=== PATIENT | male | born 1950 | race Caucasian/White ===

== ENCOUNTER → 2016-06-07 | Outpatient (CLI) | payer OTHER ==
[~2016-06-07] MED LIST: ACET-749 PO; ASPI81TA28 PO; CIPR1TAB10 PO; CLC100 PO; DTR5 PO; ECHI80CA PO; MULT-513 PO; PRLSR20 PO; SIMV20TA2 PO; VGR50 PO
== END | disposition home or self-care (01) ==
LOC: C.LAB1850 11:56
PROVIDERS: ATTEND Internal Medicine
DX: Z00.00 Encounter for general adult medical examination without abnormal findings (principal); Z11.59 Encounter for screening for other viral diseases; C61 Malignant neoplasm of prostate

== ENCOUNTER → 2016-07-02 | Outpatient (CLI) | payer OTHER ==
[2016-07-02 10:25] LABS: BLOOD UREA NITROGEN 17 mg/dl (7-18); BUN/CREATININE RATIO 13.4 (10-20)
== END ==
LOC: C.LAB1850 08:40
PROVIDERS: ATTEND Urology
DX: R97.20 Elevated prostate specific antigen [PSA] (principal)

== ENCOUNTER → 2016-08-10 | Outpatient (CLI) | payer OTHER ==
[2016-08-10 10:11] LABS: ALT/SGPT 30 U/L (12-78); AST/SGOT 21 U/L (15-37); BLOOD UREA NITROGEN 16 mg/dl (7-18); BUN/CREATININE RATIO 12.3 (10-20); CARBON DIOXIDE 25 mmol/L (21-32); CHLORIDE 110 mmol/L (98-107); CHOLESTEROL 194 mg/dl (0-200); GLUCOSE 102 mg/dl (70-99); POTASSIUM 4.1 mmol/L (3.5-5.1); SODIUM 142 mmol/L (136-145); TRIGLYCERIDES 72 mg/dl (0-150); VERY LOW DENSITY LIPOPROT CALC 14 mg/dl
[2016-08-10 10:14] LABS: CHOLESTEROL/HDL RATIO 2.9; HDL CHOLESTEROL 67 mg/dl; LDL CHOLESTEROL CALCULATED 113 mg/dl
[2016-08-10 10:15] LABS: CALCIUM 9.2 mg/dl (8.5-10.1)
[2016-08-10 10:18] LABS: ESTIMATED AVERAGE GLUCOSE 111 mg/dl; HA1C FLAG Normal (Normal)
== END | disposition home or self-care (01) ==
LOC: C.LAB1850 08:15
PROVIDERS: ATTEND Internal Medicine
DX: E78.5 Hyperlipidemia, unspecified (principal); R73.9 Hyperglycemia, unspecified

== ENCOUNTER → 2016-11-20 | Outpatient (CLI) | payer OTHER | END | disposition home or self-care (01) | LOC: C.LAB1850 11:28 | PROVIDERS: ATTEND Urology | DX: J01.90 Acute sinusitis, unspecified (principal) ==

== ENCOUNTER → 2016-11-26 | Outpatient (CLI) | payer OTHER | END | disposition home or self-care (01) | LOC: C.PATHSPEC 13:09 | PROVIDERS: ATTEND Urology | DX: C61 Malignant neoplasm of prostate (principal) ==

== ENCOUNTER → 2017-01-01 | Outpatient (CLI) | payer OTHER ==
[~2017-01-01] MED LIST changes: -ECHI80CA PO
[2017-01-01 15:04] LABS: URINE APPEARANCE CLEAR (CLEAR); URINE BILIRUBIN NEG (NEG); URINE COLOR YELLOW; URINE NITRITE NEG (NEG); URINE PH 7.5 (4.5-7.5); URINE SPECIFIC GRAVITY 1.014 (1.000-1.030); UROBILINOGEN NEG (NEG)
[2017-01-01 15:13] LABS: MANUAL MICROSCOPIC REQUIRED? NO; REVIEW REQ? NO
== END | disposition home or self-care (01) ==
LOC: C.LAB 13:56
PROVIDERS: ATTEND Urology
DX: C61 Malignant neoplasm of prostate (principal); E78.5 Hyperlipidemia, unspecified; R73.9 Hyperglycemia, unspecified

== ENCOUNTER 2017-01-15 05:32 | Inpatient (IN) | payer OTHER ==
[2016-12-31 08:14] VITALS: BMI 26.0
--- NOTE | 2016-12-31 08:34 | PAT Medication Instructions ---
Service Date Dec 31, 2016. Current Home Medication List Aspirin (Aspirin Ec), 81 MG PO QPM Multivitamins/Minerals (Mvi With Minerals), 1 TAB PO QPM Omeprazole (Prilosec), 20 MG PO 3XWK Sildenafil Citrate (Viagra), 50 MG PO PRN Simvastatin (Zocor), 20 MG PO QPM Medication Instructions For Your Scheduled Surgery Aspirin (Aspirin Ec), 81 MG PO QPM (check with surgeon for instructions) Omeprazole (Prilosec), 20 MG PO 3XWK (continue as directed) - Hold the following medications the morning of surgery: Sildenafil Citrate (Viagra), 50 MG PO PRN - Take the following medications as scheduled the night before surgery: Sildenafil Citrate (Viagra), 50 MG PO PRN (if needed) Simvastatin (Zocor), 20 MG PO QPM Multivitamins/Minerals (Mvi With Minerals), 1 TAB PO QPM If you have any questions please call us at [phone] or [phone] or [phone]
--- NOTE | 2016-12-31 09:20 | DIAGNOSTIC IMAGING REPORT ---
CHEST PREADMISSION(PA/LAT) CLINICAL HISTORY: 66 years-old Male presenting with preadmission chest x-ray. TECHNIQUE: PA and lateral views of the chest were obtained. COMPARISON: 06/11/2014. FINDINGS: Cardiomediastinal silhouette normal. Lungs and pleural spaces clear. Osseous structures normal. Upper abdomen normal. IMPRESSION: 1. No acute cardiopulmonary disease. Electronically signed by: Hubert Nguyen M.D. 12/31/2016 9:19 AM Dictated Date/Time: 12/31/2016 9:18 AM
[2016-12-31 09:45] LABS: BASO % 0.6 %; BASO ABS # 0.04 K/uL (0-0.2); COMPLETE YES; EOS % 2.8 %; HEMATOCRIT 44.6 % (42-52); IG% 0.2 %; LYMPH % 33.9 %; LYMPH ABS # 2.19 K/uL (1.2-3.4); MEAN CELL VOLUME 98.7 fL (80-100); MEAN CORPUSCULAR HGB CONC 33.4 g/dl (32-36); MEAN PLATELET VOLUME 9.9 fL (7.4-10.4); MONO % 9.6 %; NEUT % 52.9 %; PLATELET COUNT 254 K/uL (130-400); RED BLOOD COUNT 4.52 M/uL (4.7-6.1); WHITE BLOOD COUNT 6.46 K/uL (4.8-10.8)
[2016-12-31 09:56] LABS: BUN/CREATININE RATIO 15.3 (10-20); CREATININE 1.1 mg/dl (0.60-1.40); POTASSIUM 5.1 mmol/L (3.5-5.1)
[2017-01-15] VITALS (9 sets, daily range): BP systolic 100–133; BP diastolic 64–77; PULSE 55–76; TEMP 36.1–36.9; O2SAT 94–99; Ht 165.1 cm; Wt 73.3 kg
[~2017-01-15] VITALS: Ht 165.1 cm; Wt 73.3 kg
[~2017-01-15 05:32] MED LIST changes: -ACET-749 PO; -CIPR1TAB10 PO; -CLC100 PO; -DTR5 PO
[2017-01-15] MEDS ORDERED: CEFOXITIN IV 2,000 MG in DEXTROSE 5% 50ML 50 ML IV SCH ×4 (06:00)
[2017-01-15] MEDS ORDERED: LACTATED RINGER'S 1000ML 1,000 ML IV SCH (06:00)
[2017-01-15] MEDS ORDERED: CEFAZOLIN 2000 MG/60 ML D5W IV SCH (06:00)
[2017-01-15] MEDS ORDERED: HEPARIN SOD 5000 UNIT/0.5 ML CARP SQ SCH (06:00)
[2017-01-15] MEDS: LACTATED RINGER'S 1000ML 1,000 ML IV SCH ×5 (06:09→23:59)
[2017-01-15] MEDS ORDERED: NURSING VERBAL MED ORDER ONE (06:30)
[2017-01-15] MEDS ORDERED: MIDAZOLAM HCL 1 MG/ML 2ML VIAL ONE (06:48)
[2017-01-15] MEDS ORDERED: FENTANYL CITRATE INJ 50 MCG/1 ML 2 ML VIAL ONE (06:48)
[2017-01-15] MEDS ORDERED: LIDOCAINE HCL 2% 2 ML VIAL (20MG/ML) ONE (06:49)
[2017-01-15] MEDS ORDERED: PROPOFOL IV EMULSION 10 MG/ML 20 ML VIAL IV ONE (06:49)
[2017-01-15] MEDS ORDERED: ONDANSETRON INJ 2 MG/ML 2 ML VIAL ONE (06:50)
[2017-01-15] MEDS ORDERED: GLYCOPYRROLATE INJ 0.2 MG/ML VIAL ONE (06:50)
[2017-01-15] MEDS ORDERED: NEOSTIGMINE METHYLSULFATE 5 MG/5 ML SYR ONE (06:50)
[2017-01-15] MEDS ORDERED: DEXAMETHASONE SOD INJ 4 MG/ML VIAL ONE (06:50)
[2017-01-15] MEDS ORDERED: BUPIVACAINE 0.5 % 5 MG/1 ML MPF 30ML VIAL ONE (06:57)
[2017-01-15] MEDS ORDERED: METHYLENE BLUE 0.5% 10 ML VIAL ONE (06:57)
--- NOTE | 2017-01-15 07:27 | History & Physical Bridge Note ---
H&P Re-Evaluation Bridge Note: I have examined the patient, reviewed the History & Physical and in the interval since the performance of the History & Physical I have noted the following changes of clinical significance: No changes noted
[2017-01-15] MEDS ORDERED: BELLADONNA/OPIUM SUPP 60 MG SUPP PR ONE (07:46)
[2017-01-15] MEDS ORDERED: MEPERIDINE HCL 25 MG/ML CARP IV PRN (08:00)
[2017-01-15] MEDS ORDERED: LABETALOL HCL IV 5 MG/ML 20ML IV PRN (08:00)
[2017-01-15] MEDS ORDERED: ATROPINE SULFATE 0.1 MG/ML 5ML SYR IV PRN (08:00)
[2017-01-15] MEDS ORDERED: ONDANSETRON INJ 2 MG/ML 2 ML VIAL IV PRN ×2 (08:00→10:15)
[2017-01-15] MEDS ORDERED: EpHEDrine SULFATE INJ 50 MG/ML AMP IV PRN (08:00)
[2017-01-15] MEDS ORDERED: HYDROmorphone INJ 1 MG/ML SYR IV PRN ×2 (08:00→10:15)
[2017-01-15] MEDS ORDERED: FLOSEAL HEMOSTATIC MATRIX 10ML TOP ONE (08:52)
[2017-01-15] MEDS ORDERED: SURGICEL ABSORB HEMOSTAT 2IN X 14IN TOP ONE (08:52)
[2017-01-15] MEDS ORDERED: ROCURONIUM BROMIDE 10 MG/ML 5 ML VIAL IV ONE (10:10)
[2017-01-15] MEDS ORDERED: KETOROLAC TROMETHAMINE 15 MG/ML VIAL IV PRN (10:15)
[2017-01-15] MEDS ORDERED: ACETAMINOPHEN/CODEINE 300/30MG TAB PO PRN (10:15)
[2017-01-15] MEDS ORDERED: OXYBUTYNIN CHLORIDE 5 MG TAB PO PRN (10:15)
[2017-01-15] MEDS: FENTANYL CITRATE INJ 50 MCG/1 ML 2 ML VIAL IV PRN ×2 (10:43→10:50)
--- NOTE | 2017-01-15 10:45 | [facility] Operative Report ---
Operative Report Operative Date Jan 15, 2017. Pre-Operative Diagnosis Prostate cancer Post-Operative Diagnosis Prostate Cancer Procedure(s) Performed Laparoscopic, robotic-assisted prostatectomy with bilateral pelvic lymph node dissection Surgeon Dr. 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 Complication(s) None Disposition Recovery Room / PACU (stable) Indications Prostate cancer - active surveillance for several years with progression of disease Description of Procedure Malik Luong was identified in the preoperative holding area, appropriate informed consents were reviewed and completed, and he was transported to the operating suite. Subcutaneous heparin was administered in the pre-operative holding area. Upon arrival in the operating suite, he received appropriate antibiotics and general anesthesia. He was positioned in dorsal lithotomy, a B& O suppository was inserted after digital rectal exam, and he was prepped and draped in standard fashion. A Ybarra catheter was inserted in the sterile field. A Veress needle was passed per umbilicus with uniform insuflation of the abdomen to 15mmHg. He was placed in steep Trendelenburg position. A periumbilical incision was then made to accommodate a 12mm Visiport with 10mm 0degree laparoscope. Inspection of the abdomen was carried out, and there was no evidence of traumatic entry or injury secondary to the Veress needle. The anterior abdominal wall was inspected, and of note the patient has had a prior open appendectomy. There were adhesions in the area of his prior surgery as well as other adhesions across the inferior aspect of the pelvis. I was able to sharply incise some of these adhesions and bluntly retracted others. I performed approximately 15 minutes of lysis of adhesions before adequately clearing the anterior abdominal wall for further port placement. Ports were subsequently placed in standard robotic prostatectomy fashion without incident. To begin the robotic portion of the case, the left lateral aspect of the sigmoid was mobilized off of the left pelvic side wall to allow the pouch of Maxime to be appropriately visualized. The medial umbilical ligaments were then controlled with bipolar electrocautery just inferior to the umbilicus. Following cauterization, they were divided utilizing monopolar cautery. A peritoneal incision was carried from this location to the medial aspect of the internal inguinal rings bilaterally with care to avoid opening through the ring. This incision was concluded when the vas deferens was reached. Dissection of the bladder and prostate off of the posterior aspect of the pubic arch was completed allowing full visualization of the prostate. The fat overlying the prostate was removed en bloc and passed off the table as a specimen labeled "periprostatic fat". The endopelvic fascia was cleared during this portion of the procedure, and subsequently opened - first on the right and then the left. The incision through the endopelvic fascia began near the prostate-bladder junction and was carried to the apex with extreme care to preserve all lateral levator musculature as well as the periurethral musculature and sphincter complex. The puboprostatic ligaments were thinned slightly bilaterally before placing a 0-Vicryl figure of 8 stitch around the DVC. The lymph node dissection was then conducted. External iliac vessles were identified on the pelvic side wall. The packet of fat and lymphatic tissue that resides just under the iliac vein was elevated and off of the vein with a split and roll technique. The packet was dissected laterally to the circumflex vein and distally to the obturator nerve which was preserved. The proximal aspect of the packet was carried towards the bifurcation of the iliac vessels. A combination of monopolar and bipolar cautery were used to assist with control. Clips were placed at the proximal and distal aspects of the packet prior to transection. After completing the dissection on both sides, the packets were collected and passed off of the table as specimens labeled "pelvic lymph nodes". My attention then returned to the prostate, with identification of the bladder neck aided by gentle traction on the Ybarra catheter and lateral to medial pressure at the presumed level of the bladder neck with the robotic instruments. An anterior cystotomy was made, the Ybarra balloon deflated and the catheter guided through the incision to allow anterior retraction. I attempted to preserve maximal bladder neck musculature as I circumferentially dissected around the bladder neck. After incision through the posterior aspect of the mucosa, the dissection was carried through detrusor muscle until the bilateral ampullae of the vasa were identified. After identifying the vasa, I developed a pedicle packet on each side to help flatten the dissection and placed Weck clips across the most proximal and superficial aspects of these packets adjacent to the bladder. The packets were then divided allowing easier visualization of the vasa and posterior aspect of the prostate. Vasa were each dissected before being transected. These were used to further aide in anterior retraction as the bilateral seminal vesicals were dissected with very judicious use of bipolar electrocautery. Following SV dissection, a posterior plane behind the prostate was developed - splitting Denonvilliers's fascia. This dissection was carried as far as possible towards the apex as well as far as possible laterally. An incision in the lateral prostatic fascia was then made bilaterally to facilitate control of the vascular pedicles. The pedicles were each controlled with a series of Weck clips. The neurovascular bundles were identified and a moderate nerve sparing was performed - with particular caution on the right. The apical attachments of the prostate were remaining at that stage. The DVC was divided with bipolar electrocautery. Lulú-prostatic tissue incised with sharp dissection and monopolar cautery. Maximal urethral length was preserved before dividing the urethra sharply. The prostate was entirely freed at that point, and collected in an EndoCatch bag before being moved out of the field of vision. Hemostasis was confirmed and anastomosis of the bladder and urethra was completed utilizing a double armed V- Lock stitch. A new Ybarra catheter was inserted and the anastomosis tested with irrigation. There was no evidence of leak. FloSeal coagulant was placed around the anastomosis. The robot was undocked, the specimen extracted through expansion of the lulú- umbilical camera port. The fascia was closed with a series of 0-PDS figure of 8 stitches. The right general office assistant port was closed in two layers - with a figure of 8 0-Vicryl to reapproximate the fascia followed by 4-0 Monocryl to close the skin. Monocryl was used to close all other skin incisions. All wounds were dressed with Dermabond. The case was concluded and the patient taken to the PACU in stable condition. I attest to the content of the Intraoperative Record and any orders documented therein. Any exceptions are noted below.
[2017-01-15 11:04] LABS: MEAN CELL VOLUME 97.9 fL (80-100); MEAN CORPUSCULAR HEMOGLOBIN 33.8 pg (25-34); MEAN PLATELET VOLUME 9.4 fL (7.4-10.4); PLATELET COUNT 229 K/uL (130-400); RED BLOOD COUNT 4.29 M/uL (4.7-6.1); WHITE BLOOD COUNT 12.54 K/uL (4.8-10.8)
[2017-01-15 11:16] LABS: MEAN CORPUSCULAR HGB CONC 34.5 g/dl (32-36)
--- NOTE | 2017-01-15 11:25 | Anesthesiology Progress Note ---
Anesthesia Post Op Note Date & Time Jan 15, 2017 at 11:25 Vital Signs Pain Intensity: 3 Vital Signs Past 12 Hours Date Time Temp Pulse Resp B/P (MAP) Pulse Ox O2 Delivery O2 Flow Rate FiO2 01/15/17 11:24 36.2 01/15/17 11:22 51 16 01/15/17 11:22 50 16 98 01/15/17 11:21 98/55 01/15/17 11:17 43 16 98 01/15/17 11:17 45 16 01/15/17 11:16 106/60 01/15/17 11:12 54 13 99 01/15/17 11:12 55 13 01/15/17 11:11 105/59 01/15/17 11:08 56 15 01/15/17 11:08 56 15 99 01/15/17 11:06 104/55 01/15/17 11:03 52 16 01/15/17 11:03 53 16 98 01/15/17 11:01 100/61 01/15/17 10:58 50 16 01/15/17 10:58 50 16 99 01/15/17 10:57 44 16 01/15/17 10:57 44 16 98 01/15/17 10:56 110/61 01/15/17 10:52 48 12 99 01/15/17 10:52 47 12 01/15/17 10:51 106/62 01/15/17 10:49 112/61 01/15/17 10:47 47 14 01/15/17 10:47 46 14 95 01/15/17 10:46 54 18 84 01/15/17 10:46 91 18 01/15/17 10:41 45 16 99/53 100 01/15/17 10:41 46 16 01/15/17 10:36 48 11 98/52 98 01/15/17 10:36 47 11 01/15/17 10:32 96/53 01/15/17 10:31 51 18 01/15/17 10:31 35.9 48 13 96/53 96 Nasal Cannula 4 01/15/17 10:31 51 18 96 01/15/17 05:45 36.6 76 18 133/66 (88) 97 Room Air Notes Mental Status: alert / awake / arousable, participated in evaluation Pt Amnestic to Procedure: Yes Nausea / Vomiting: adequately controlled Pain: adequately controlled Airway Patency, RR, SpO2: stable & adequate BP & HR: stable & adequate Hydration State: stable & adequate Anesthetic Complications: no major complications apparent
[2017-01-15 11:28] LABS: CALCIUM 8.8 mg/dl (8.5-10.1); CREATININE 1.5 mg/dl (0.60-1.40); POTASSIUM 4.2 mmol/L (3.5-5.1)
[2017-01-15] MEDS ORDERED: HYDROmorphone INJ 1 MG/ML SYR ONE (12:00)
[2017-01-15 13:40] LABS: PARTIAL THROMBOPLASTIN RATIO 0.9; PROTHROMBIN TIME (PATIENT) 10.5 SECONDS (9.0-12.0)
[2017-01-15] MEDS: ACETAMINOPHEN 500 MG TAB PO SCH ×2 (13:52→18:00)
[2017-01-15] MEDS: CEFAZOLIN IV 2,000 MG in DEXTROSE 5% 50ML 50 ML IV SCH ×2 (16:55→23:59)
[2017-01-15] MEDS: HEPARIN SOD 5000 UNIT/0.5 ML CARP SQ SCH (19:37)
[2017-01-15] MEDS: SIMVASTATIN 20 MG TAB PO SCH (21:28)
[2017-01-15] MEDS: DOCUSATE SODIUM 100 MG CAP PO SCH (21:28)
[2017-01-16 03:47] VITALS: BP 95/57; PULSE 61; TEMP 37.2; O2SAT 93
[2017-01-16] MEDS: ACETAMINOPHEN 500 MG TAB PO SCH ×5 (05:47→23:13)
[2017-01-16] MEDS: LACTATED RINGER'S 1000ML 1,000 ML IV SCH ×2 (05:47→12:52)
[2017-01-16 05:55] LABS: BASO % 0.1 %; BASO ABS # 0.01 K/uL (0-0.2); COMPLETE YES; EOS % 0.2 %; HEMATOCRIT 38.1 % (42-52); IG% 0.4 %; LYMPH % 16.3 %; LYMPH ABS # 1.86 K/uL (1.2-3.4); MEAN CELL VOLUME 96.5 fL (80-100); MEAN CORPUSCULAR HEMOGLOBIN 33.4 pg (25-34); MEAN CORPUSCULAR HGB CONC 34.6 g/dl (32-36); MEAN PLATELET VOLUME 9.8 fL (7.4-10.4); MONO % 9.4 %; NEUT % 73.6 %; PLATELET COUNT 212 K/uL (130-400); RED BLOOD COUNT 3.95 M/uL (4.7-6.1); WHITE BLOOD COUNT 11.41 K/uL (4.8-10.8)
[2017-01-16] MEDS: HEPARIN SOD 5000 UNIT/0.5 ML CARP SQ SCH ×2 (06:18→18:50)
[2017-01-16 06:39] LABS: BUN/CREATININE RATIO 13.8 (10-20); CALCIUM 7.9 mg/dl (8.5-10.1); CREATININE 0.95 mg/dl (0.60-1.40); POTASSIUM 4.4 mmol/L (3.5-5.1)
[2017-01-16 07:08] VITALS: BP 93/55; PULSE 61; TEMP 36.9; O2SAT 93
[2017-01-16] MEDS: CEFAZOLIN IV 2,000 MG in DEXTROSE 5% 50ML 50 ML IV SCH (07:52)
--- NOTE | 2017-01-16 08:05 | Progress Note ---
Progress Note Date of Service Jan 16, 2017. Progress Note S: Recovering well - no major issues overnight - passed some flatus - OOB in chair - pain well controlled on tylenol alone O: Vital Signs Past 12 Hours Date Time Temp Pulse Resp B/P (MAP) Pulse Ox O2 Delivery O2 Flow Rate FiO2 01/16/17 07:08 36.9 61 17 93/55 (68) 93 Room Air 01/16/17 03:47 37.2 61 16 95/57 (70) 93 Room Air 01/15/17 23:30 Room Air 01/15/17 23:19 36.9 73 16 100/64 (76) 95 Room Air NAD AAOx3 no resp distress abd soft urine clear A/P: POD #1 s/p RALP - doing well - ambulate -slow diet advance
--- NOTE | 2017-01-16 08:13 | Discharge Instructions ---
Discharge Instructions Date of Service Jan 15, 2017. Admission Reason for Admission: Prostate Cancer Discharge Discharge Diagnosis / Problem: Prostate Cancer Discharge Goals Goal(s): Decrease discomfort, Increase independence, Improve disease control, Improve nutritional status, Therapeutic intervention Activity Recommendations Activity Limitations: per Instructions/Follow-up section Shower/Bathe: tomorrow 1. Do not lift >15lbs x 6 weeks. 2. No heavy exercise x 6 weeks. You may engage in light activity such as walking and stairs as tolerated. 3. No sexual intercourse until cleared by Dr. Tran or Dr. Gomez. 4. Do not drive x [address] while taking narcotics. 5. You have been prescribed the antibiotic Ciprofloxacin. Start this 2 days prior to butts catheter removal. Finish all of the antibiotic you have been prescribed. 6. Immediately call our office at [phone] if your catheter is removed for any reason. 7. Follow-up as scheduled. Please call our office at [phone] if you need to reschedule for any reason. . . Current Hospital Diet Hospital Diet(s): Clear Liquid Diet Discharge Diet Recommended Diet: Regular Diet Procedures Procedures Performed: Laparoscopic, robotic-assisted prostatectomy with bilateral pelvic lymph node dissection Pending Studies Studies pending at discharge: yes (prostate and lymph node pathology) List of pending studies: prostate and lymph node pathology Medical Emergencies . Who to Call and When: Medical Emergencies: If at any time you feel your situation is an emergency, please call 911 immediately. . Non-Emergent Contact Non-Emergency issues call your: Urologist Call Non-Emergent contact if: temperature is above 101.5, your pain is not controlled, your pain is worsening, your pain is unusual for you, your pain is concerning you, you have any medication questions . . "Provider Documentation" section prepared by Lillian Mccracken. . VTE Core Measure Inpt VTE Proph given/why not?: Unfractionated heparin SQ, SCD's [place] Drug Monitoring Program Search Results: patient reviewed within database, no issues identified
[2017-01-16] MEDS ORDERED: ACET-749 PO (08:16)
[2017-01-16] MEDS ORDERED: DTR5 PO (08:16)
[2017-01-16] MEDS ORDERED: CLC100 PO (08:16)
[2017-01-16] MEDS ORDERED: CIPR1TAB10 PO (08:16)
[2017-01-16] MEDS ORDERED: PANTOprazole SOD 40 MG TAB PO SCH (09:00)
[2017-01-16] MEDS: DOCUSATE SODIUM 100 MG CAP PO SCH ×2 (09:50→20:34)
[2017-01-16] MEDS: ASPIRIN 81 MG ECTAB PO SCH (09:51)
--- NOTE | 2017-01-16 11:01 | Anesthesiology Progress Note ---
Anesthesia Post Op Note Date & Time Jan 16, 2017 at 11:00 Vital Signs Pain Intensity: 4.0 Vital Signs Past 12 Hours Date Time Temp Pulse Resp B/P (MAP) Pulse Ox O2 Delivery O2 Flow Rate FiO2 01/16/17 07:49 Room Air 01/16/17 07:08 36.9 61 17 93/55 (68) 93 Room Air 01/16/17 03:47 37.2 61 16 95/57 (70) 93 Room Air 01/15/17 23:30 Room Air 01/15/17 23:19 36.9 73 16 100/64 (76) 95 Room Air Notes Mental Status: alert / awake / arousable Nausea / Vomiting: adequately controlled Pain: adequately controlled Airway Patency, RR, SpO2: stable & adequate BP & HR: stable & adequate Hydration State: stable & adequate General Anesthesia stable happy with care.
[2017-01-16 15:44] VITALS: BP 110/69; PULSE 65; TEMP 37.4; O2SAT 97
[2017-01-16] MEDS ORDERED: NURSING VERBAL MED ORDER ONE (19:00)
[2017-01-16] MEDS: SIMVASTATIN 20 MG TAB PO SCH (20:34)
[2017-01-16 23:08] VITALS: BP 108/68; PULSE 74; TEMP 37.1; O2SAT 94
[2017-01-17] MEDS: HEPARIN SOD 5000 UNIT/0.5 ML CARP SQ SCH (06:09)
[2017-01-17] MEDS: ACETAMINOPHEN 500 MG TAB PO SCH ×2 (06:09→12:32)
[2017-01-17 07:05] VITALS: BP 120/73; PULSE 67; TEMP 36.6; O2SAT 93
[2017-01-17 07:13] LABS: BASO % 0.3 %; BASO ABS # 0.02 K/uL (0-0.2); COMPLETE YES; EOS % 1.3 %; IG% 0.1 %; LYMPH % 22.8 %; MEAN CELL VOLUME 96.1 fL (80-100); MEAN CORPUSCULAR HEMOGLOBIN 33.5 pg (25-34); MEAN CORPUSCULAR HGB CONC 34.9 g/dl (32-36); MEAN PLATELET VOLUME 9.5 fL (7.4-10.4); MONO % 7.6 %; NEUT % 67.9 %; PLATELET COUNT 209 K/uL (130-400); RED BLOOD COUNT 3.85 M/uL (4.7-6.1); WHITE BLOOD COUNT 7.46 K/uL (4.8-10.8)
[2017-01-17 07:51] LABS: BUN/CREATININE RATIO 12.8 (10-20); CALCIUM 8.2 mg/dl (8.5-10.1); POTASSIUM 3.9 mmol/L (3.5-5.1)
--- NOTE | 2017-01-17 08:17 | Progress Note ---
Subjective Date of Service: Jan 17, 2017. Subjective Pt evaluation today including: conversation w/ patient, chart review, lab review Voiding: butts catheter in place (patent, draining clear, yellow urine ) 66 yo male s/p RALRP. Pt reports some abdominal soreness this morning, but otherwise feels well. Denies n/v. Tolerating mechanical soft diet. + flatus. Denies BM. He has been ambulating to the hallway without difficulty. Labs stable. Cr has normalized. Review of Systems Constitutional: No fever, No chills Respiratory: No shortness of breath Cardiac: No chest pain Abdomen: + pain (incisional soreness), No nausea, No vomiting Male : No hematuria Heme: No abnormal bleeding/bruising Objective Vital Signs Date Time Temp Pulse Resp B/P (MAP) Pulse Ox O2 Delivery O2 Flow Rate FiO2 01/17/17 07:05 36.6 67 17 120/73 (89) 93 Room Air 01/17/17 00:14 Room Air 01/16/17 23:08 37.1 74 16 108/68 (81) 94 Room Air 01/16/17 20:00 Room Air 01/16/17 15:44 37.4 65 16 110/69 (83) 97 Room Air Physical Exam General Appearance: no apparent distress Eyes: normal inspection ENT: hearing grossly normal Neck: no JVD Respiratory/Chest: no respiratory distress, no accessory muscle use Cardiovascular: no JVD Abdomen: + pertinent finding (abdominal incisions c/d/i) Extremities: normal inspection Neurologic/Psychiatric: alert, normal mood/affect, oriented x 3 Skin: normal color Laboratory Results Last 24 Hours Test 01/17/17 06:47 White Blood Count 7.46 K/uL Red Blood Count 3.85 M/uL Hemoglobin 12.9 g/dL Hematocrit 37.0 % Mean Corpuscular Volume 96.1 fL Mean Corpuscular Hemoglobin 33.5 pg Mean Corpuscular Hemoglobin Concent 34.9 g/dl Platelet Count 209 K/uL Mean Platelet Volume 9.5 fL Neutrophils (%) (Auto) 67.9 % Lymphocytes (%) (Auto) 22.8 % Monocytes (%) (Auto) 7.6 % Eosinophils (%) (Auto) 1.3 % Basophils (%) (Auto) 0.3 % Neutrophils # (Auto) 5.06 K/uL Lymphocytes # (Auto) 1.70 K/uL Monocytes # (Auto) 0.57 K/uL Eosinophils # (Auto) 0.10 K/uL Basophils # (Auto) 0.02 K/uL RDW Standard Deviation 44.6 fL RDW Coefficient of Variation 12.8 % Immature Granulocyte % (Auto) 0.1 % Immature Granulocyte # (Auto) 0.01 K/uL Sodium Level 144 mmol/L Potassium Level 3.9 mmol/L Chloride Level 111 mmol/L Carbon Dioxide Level 28 mmol/L Anion Gap 5.0 mmol/L Blood Urea Nitrogen 13 mg/dl Creatinine 1.00 mg/dl Est Creatinine Clear Calc Drug Dose 62.4 ml/min Estimated GFR () 89.9 Estimated GFR (Non- 77.5 BUN/Creatinine Ratio 12.8 Random Glucose 101 mg/dl Calcium Level 8.2 mg/dl Assessment and Plan POD #2 s/p RALRP. AFVSS. Pt doing well post-op. Clinically stable. Will d/c home this morning with butts catheter in place. D/c home on oxybutynin , Colace, Tylenol #3, and Cipro. F/u next week for TOV as scheduled. Discharge planning: home
[2017-01-17] MEDS: DOCUSATE SODIUM 100 MG CAP PO SCH (08:56)
[2017-01-17] MEDS: ASPIRIN 81 MG ECTAB PO SCH (08:56)
[2017-01-17 10:51] VITALS: BP 120/73; PULSE 67; TEMP 36.6; O2SAT 93
--- NOTE | 2017-01-22 09:03 | Discharge Summary ---
Discharge Summary Date of Service Jan 22, 2017. Discharge Summary Admission Date: Jan 15, 2017 at 10:20 Discharge Date: Jan 16, 2017 Discharge Disposition: Home Principal Diagnosis: Prostate cancer Procedures: Robotic prostatectomy Medication Reconciliation New Medications: Ciprofloxacin Hcl (Cipro) 500 Mg Tab 500 MG PO BID, #10 TAB Start 2 days prior to butts catheter removal. Acetaminophen/Codeine (Tylenol W/Codeine #3) 300 Mg/30 Mg Tab 1-2 TAB PO Q4H PRN for Pain, #30 TAB 0 Refills Docusate Sodium (Docusate Sodium) 100 Mg Cap 100 MG PO BID PRN for Constipation, #60 CAP 0 Refills Oxybutynin Chloride (Oxybutynin Chloride) 5 Mg Tab 5 MG PO Q8 PRN for BLADDER SPASMS, #30 TAB 0 Refills Continued Medications: Aspirin (Aspirin Ec) 81 Mg Tab 81 MG PO QPM Multivitamins/Minerals (Mvi With Minerals) Tab 1 TAB PO QPM, TAB Omeprazole (Prilosec) 20 Mg Capcr 20 MG PO 3XWK, CAP TAKES IN AM MON, WED, FRI Simvastatin (Zocor) 20 Mg Tab 20 MG PO QPM, TAB Discontinued Medications: Sildenafil Citrate (Viagra) 50 Mg Tab 50 MG PO PRN, TAB Hospital Course Patient was admitted on 01/16/2017 and underwent a robotic prostatectomy. The procedure are as previously dictated in the operative report. In summary, he tolerated the procedure very well. He was in stable condition on the floor through postoperative day 1. He felt it was not quite ready for discharge home and was was kept overnight on postoperative day one and into day 2. Laboratory examinations were in stable, he was ambulatory, and was tolerating a diet. He was subsequently discharged on postoperative day 2 in stable condition. Total time spent on discharge = This includes examination of the patient, discharge planning, medication reconciliation, and communication with other providers. Discharge Instructions Please see previously written discharge instructions
== END 2017-01-17 13:00 | disposition home or self-care (01) | DRG 708 ==
LOC: C.ACU 05:32 → C.MSW 10:20 → ENRESERV 10:59
PROVIDERS: ADMIT Urology; ATTEND Urology
PROC: 0VT04ZZ Resection of Prostate, Percutaneous Endoscopic Approach (ICD-10-PCS; principal; 2017-01-15 07:30)
PROC: 07BC4ZX Excision of Pelvis Lymphatic, Percutaneous Endoscopic Approach, Diagnostic (ICD-10-PCS; principal; 2017-01-15 07:30)
DX: C61 Malignant neoplasm of prostate (principal); E78.5 Hyperlipidemia, unspecified; M19.90 Unspecified osteoarthritis, unspecified site

== ENCOUNTER 2017-01-17 23:14 | Emergency (ER) | payer OTHER ==
[~2017-01-17] VITALS: Ht 165.1 cm; Wt 72.4 kg
[~2017-01-17 23:14] MED LIST changes: +ACET-749 PO; +CIPR1TAB10 PO; +CLC100 PO; +DTR5 PO; -VGR50 PO
[2017-01-17 23:16] VITALS: TEMP 36.6; Ht 165.1 cm; Wt 72.4 kg
[2017-01-17] MEDS ORDERED: POLYETHYLENE (MIRALAX) 17 GM PACK PO STA (23:58)
[2017-01-18 00:20] VITALS: BP 123/76; PULSE 67; O2SAT 98
--- NOTE | 2017-01-18 07:15 | EMERGENCY ROOM VISIT NOTE ---
History Report prepared by Samreen: Beatrice Esposito Under the Supervision of: Dr. Jo Ann Salinas M.D. First contact with patient: 23:26 Chief Complaint: OTHER COMPLAINT Stated Complaint: COMPLICATIONS FROM PROSTATE SURGERY History of Present Illness The patient is a 66 year old male who presents to the Emergency Room with complaints of an episode of movement of his catheter occurring tonight. The patient states that he had surgery on his prostate two days ago. He reports he thought his catheter moved and was worried it had come out. The patient states that the catheter is still draining and he goes to get it out in five days. The patient complains of constipation, no BM in 5 days. He notes he has not been taking narcotic pain medication, only Tylenol. He states that he takes stool softeners with no relief. He denies fevers, vomiting, and diarrhea. Source of History: patient Onset: tonight Position: other (global) Quality: other (global) Timing: other (episode) Associated Symptoms: No fevers, No vomiting, No diarrhea Note: The patient complains of constipation. Review of Systems See HPI for pertinent positives & negatives. A total of 10 systems reviewed and were otherwise negative. Past Medical & Surgical Medical Problems: (1) Erectile dysfunction (2) Hypercholesterolemia Surgical Problems: (1) Status post appendectomy (2) Status post vasectomy Family History Cancer Diabetes mellitus Heart disease Hypertension Social History Smoking Status: Never Smoker Alcohol Use: occasionally Drug Use: none Marital Status: Housing Status: lives with family Occupation Status: retired Current/Historical Medications Scheduled Aspirin (Aspirin Ec), 81 MG PO QPM Ciprofloxacin Hcl (Cipro), 500 MG PO BID Multivitamins/Minerals (Mvi With Minerals), 1 TAB PO QPM Omeprazole (Prilosec), 20 MG PO 3XWK Simvastatin (Zocor), 20 MG PO QPM Scheduled PRN Acetaminophen/Codeine (Tylenol W/Codeine #3), 1-2 TAB PO Q4H PRN for Pain Docusate Sodium (Docusate Sodium), 100 MG PO BID PRN for Constipation Oxybutynin Chloride (Oxybutynin Chloride), 5 MG PO Q8 PRN for BLADDER SPASMS Allergies Coded Allergies: Sulfa Antibiotics (Verified Allergy, Unknown, RASH/ITCHY, 01/15/17) Physical Exam Vital Signs Date Time Temp Pulse Resp B/P (MAP) Pulse Ox O2 Delivery O2 Flow Rate FiO2 01/18/17 00:20 67 18 123/76 98 01/17/17 23:16 36.6 96 16 128/80 94 Room Air Physical Exam Vital signs reviewed. General: Well-appearing, in no significant distress. HEENT: No scleral icterus, PERRLA, neck supple. Atraumatic. Cardiovascular: Regular rate and rhythm, no extra sounds. Pulmonary: Clear to auscultation bilaterally, normal work of breathing. Abdomen: Soft, nontender, nondistended, positive bowel sounds. : Normal male genitalia with a Ybarra catheter in place. Some ecchymosis to the scrotum. Clear, yellow urine draining from catheter. Musculoskeletal: Atraumatic, no peripheral edema. Neurologic: Patient awake alert and oriented x 3. Skin: Warm, dry, no rash Medical Decision & Procedures ED Course 2343: Past medical records reviewed. The patient was evaluated in room A10. A complete history and physical examination was performed. 2358: Ordered Miralax 17 gm PO. 0019: Upon reevaluation, the patient appeared to have improvement of his symptoms. I discussed findings with the patient. He verbalized agreement of the treatment plan. The patient was discharged home. Medical Decision This pt was evaluated and appeared to be in no distress. Nursing staff adjusted the leg strap and clamp, clear urine began to flow well. Catheter was irrigated without difficulty. Pt was given miralax 17 gm po. He was advised to continue miralax q 8 hours until he has a BM. Pt will continue catheter care and f/u with Dr Gomez as scheduled. He will return to the ED for worsening of symptoms or any medical concerns. Medication Reconcilliation Current Medication List: was personally reviewed by me Blood Pressure Screening Patient's blood pressure: Normal blood pressure Blood pressure disposition: Did not require urgent referral Impression Primary Impression: Complication of Ybarra catheter Additional Impression: Constipation Scribe Attestation The scribe's documentation has been prepared under my direction and personally reviewed by me in its entirety. I confirm that the note above accurately reflects all work, treatment, procedures, and medical decision making performed by me. Departure Information Dispostion Home / Self-Care Referrals Gonzales Cox M.D. (PCP) Forms HOME CARE DOCUMENTATION FORM, IMPORTANT VISIT INFORMATION, WORK / SCHOOL INSTRUCTIONS Patient Instructions My [facility] Additional Instructions Diagnosis: Ybarra catheter issue Please continue catheter care as instructed. Follow up with Dr Gomez as scheduled. Miralax 1 capful every 8 hours until you have a BM. Return to the ED for worsening of symptoms or any medical concerns. Problem Qualifiers
== END 2017-01-18 00:19 | disposition home or self-care (01) ==
LOC: C.EDB 23:15 → C.EDA 01-18 00:19
DX: T83.028A Displacement of other urinary catheter, initial encounter (principal); Y84.6 Urinary catheterization as the cause of abnormal reaction of the patient, or of later complication, without mention of misadventure at the time of the procedure; K59.00 Constipation, unspecified; Z98.890 Other specified postprocedural states; N52.9 Male erectile dysfunction, unspecified; E78.00 Pure hypercholesterolemia, unspecified; Z80.9 Family history of malignant neoplasm, unspecified; Z83.3 Family history of diabetes mellitus; Z82.49 Family history of ischemic heart disease and other diseases of the circulatory system; Z79.82 Long term (current) use of aspirin; Z79.899 Other long term (current) drug therapy

== ENCOUNTER → 2017-02-11 | Outpatient (CLI) | payer OTHER ==
[2017-02-11 09:55] LABS: AST/SGOT 20 U/L (15-37); BLOOD UREA NITROGEN 19 mg/dl (7-18); BUN/CREATININE RATIO 17.1 (10-20); CALCIUM 8.9 mg/dl (8.5-10.1); CARBON DIOXIDE 30 mmol/L (21-32); CHLORIDE 106 mmol/L (98-107); CHOLESTEROL 200 mg/dl (0-200); CREATININE 1.12 mg/dl (0.60-1.40); GLUCOSE 99 mg/dl (70-99); POTASSIUM 4.2 mmol/L (3.5-5.1); SODIUM 141 mmol/L (136-145)
[2017-02-11 09:59] LABS: ALT/SGPT 27 U/L (12-78); CHOLESTEROL/HDL RATIO 3.2; HDL CHOLESTEROL 62 mg/dl; LDL CHOLESTEROL CALCULATED 128 mg/dl; TRIGLYCERIDES 52 mg/dl (0-150); VERY LOW DENSITY LIPOPROT CALC 10 mg/dl
[2017-02-11 10:17] LABS: ESTIMATED AVERAGE GLUCOSE 111 mg/dl; HA1C FLAG Normal (Normal)
== END | disposition home or self-care (01) ==
LOC: C.LAB1850 07:27
PROVIDERS: ATTEND Internal Medicine
DX: E78.5 Hyperlipidemia, unspecified (principal); R73.9 Hyperglycemia, unspecified

== ENCOUNTER → 2017-02-28 | Outpatient (CLI) | payer OTHER | END | disposition home or self-care (01) | LOC: C.LAB1850 07:11 | PROVIDERS: ATTEND Urology | DX: C61 Malignant neoplasm of prostate (principal) ==

== ENCOUNTER → 2017-04-11 | Outpatient (CLI) | payer OTHER | END | disposition home or self-care (01) | LOC: C.LAB1850 09:06 | PROVIDERS: ATTEND Urology | DX: C61 Malignant neoplasm of prostate (principal) ==

== ENCOUNTER 2017-05-31 15:53 | Emergency (ER) | payer OTHER ==
[~2017-05-31] VITALS: Ht 165.1 cm; Wt 72.0 kg
[2017-05-31 16:08] VITALS: TEMP 36.7; Ht 165.1 cm; Wt 72.0 kg
[2017-05-31] MEDS ORDERED: CEFTRIAXONE SOD INJ 1 GM ADDVIAL IV STA (18:28)
--- NOTE | 2017-05-31 18:31 | EMERGENCY ROOM VISIT NOTE ---
History Report prepared by Samreen: Shahbaz Whitmore Under the Supervision of: Dr. Dread France M.D. First contact with patient: 18:17 Chief Complaint: LEG PAIN,LEG INJURY Stated Complaint: BUMP ON LEG,PAINFUL,RED AND SWOLLEN History of Present Illness The patient is a 66 year old male who presents to the Emergency Room with complaints of constant left leg pain starting last night around his knee. He currently rates his discomfort as a 5/10 in severity. The patient states that he did not hit his leg on anything, and he does not have any known tick bites. He has a dog, though it is not an outdoor dog. He states that it is not itchy, and he denies any chest pain or shortness of breath. The patient states that he called his PCP, and they told him to come to the ED for evaluation. Source of History: patient Onset: last night Position: leg (left) Symptom Intensity: 5/10 Timing: constant Associated Symptoms: No chest pain, No SOB Review of Systems See HPI for pertinent positives & negatives. A total of 10 systems reviewed and were otherwise negative. Past Medical & Surgical Medical Problems: (1) Erectile dysfunction (2) Hypercholesterolemia Surgical Problems: (1) Status post appendectomy (2) Status post vasectomy Family History Cancer Diabetes mellitus Heart disease Hypertension Social History Smoking Status: Never Smoker Alcohol Use: occasionally Drug Use: none Marital Status: Housing Status: lives with family Occupation Status: retired Current/Historical Medications Scheduled Aspirin (Aspirin Ec), 81 MG PO QPM Enoxaparin Sodium (Lovenox), 70 MG SQ Q12 Multivitamins/Minerals (Mvi With Minerals), 1 TAB PO QPM Omeprazole (Prilosec), 20 MG PO Q2D Ranitidine (Zantac), 150 MG PO Q2D Sildenafil Citrate (Pulmonary (Sildenafil), 20 MG PO DAILY Simvastatin (Zocor), 20 MG PO QPM Warfarin Sodium (Coumadin), 5 MG PO DAILY Allergies Coded Allergies: Sulfa Antibiotics (Verified Allergy, Unknown, RASH/ITCHY, 01/15/17) Physical Exam Vital Signs Date Time Temp Pulse Resp B/P (MAP) Pulse Ox O2 Delivery O2 Flow Rate FiO2 05/31/17 20:51 69 16 127/80 99 05/31/17 18:44 70 16 135/85 97 Room Air 05/31/17 16:08 36.7 81 16 130/66 100 Physical Exam GENERAL: Patient is a healthy-appearing well-nourished male HEAD: Normocephalic atraumatic EYES: Ocular movements intact pupils equal and react to light OROPHARYNX mucous membranes are moist no exudates present no erythema or edema present NECK: Supple no nuchal rigidity CHEST: Good equal expansion LUNGS: Clear and equal to auscultation CARDIAC: Normal S1 and S2 ABDOMEN: Soft nontender no guarding BACK: No CVA tenderness EXTREMITIES: 4in x 4in area that is warm to the medial left knee. No pain upon palpation normal muscle strength in all groups no clubbing or cyanosis NEURO: Patient is following commands and answering questions appropriately. Alert and oriented x3 Cranial Nerves 2-12 grossly intact Medical Decision & Procedures ER Provider Diagnostic Interpretation: Radiology results as stated below per my review and radiologist interpretation: L VENOUS DOPP LOWER EXT UNILAT CLINICAL HISTORY: Pt c/o LLE swelling pain. Edema. TECHNIQUE: Venous Doppler COMPARISON STUDY: None FINDINGS: Findings consistent with thrombus within the mid to distal peroneal vein. This is inferior to the knee. All venous structures the knee to the inguinal regions are widely patent. IMPRESSION: Focal deep venous thrombosis mid to distal left peroneal vein of the left calf. All remaining venous structures are unremarkable. The above report was generated using voice recognition software. It may contain grammatical, syntax or spelling errors. Electronically signed by: Jorge Alberto Conteh M.D. 05/31/2017 7:42 PM Dictated Date/Time: 05/31/2017 7:41 PM Laboratory Results 05/31/17 18:55 Red Blood Count 4.40, Mean Corpuscular Volume 95.7, Mean Corpuscular Hemoglobin 33.2, Mean Corpuscular Hemoglobin Concent 34.7, Mean Platelet Volume 9.3, Neutrophils (%) (Auto) 53.7, Lymphocytes (%) (Auto) 35.3, Monocytes (%) (Auto) 7.1, Eosinophils (%) (Auto) 3.3, Basophils (%) (Auto) 0.5, Neutrophils # (Auto) 3.93, Lymphocytes # (Auto) 2.59, Monocytes # (Auto) 0.52, Eosinophils # (Auto) 0.24, Basophils # (Auto) 0.04 2/9/18 18:55 Test 05/31/17 18:55 05/31/17 20:15 White Blood Count 7.33 K/uL (4.8-10.8) Red Blood Count 4.40 M/uL (4.7-6.1) Hemoglobin 14.6 g/dL (14.0-18.0) Hematocrit 42.1 % (42-52) Mean Corpuscular Volume 95.7 fL (80-100) Mean Corpuscular Hemoglobin 33.2 pg (25-34) Mean Corpuscular Hemoglobin Concent 34.7 g/dl (32-36) Platelet Count 228 K/uL (130-400) Mean Platelet Volume 9.3 fL (7.4-10.4) Neutrophils (%) (Auto) 53.7 % Lymphocytes (%) (Auto) 35.3 % Monocytes (%) (Auto) 7.1 % Eosinophils (%) (Auto) 3.3 % Basophils (%) (Auto) 0.5 % Neutrophils # (Auto) 3.93 K/uL (1.4-6.5) Lymphocytes # (Auto) 2.59 K/uL (1.2-3.4) Monocytes # (Auto) 0.52 K/uL (0.11-0.59) Eosinophils # (Auto) 0.24 K/uL (0-0.5) Basophils # (Auto) 0.04 K/uL (0-0.2) RDW Standard Deviation 43.6 fL (36.4-46.3) RDW Coefficient of Variation 12.6 % (11.5-14.5) Immature Granulocyte % (Auto) 0.1 % Immature Granulocyte # (Auto) 0.01 K/uL (0.00-0.02) Prothrombin Time 10.0 SECONDS (9.0-12.0) Prothromb Time International Ratio 1.0 (0.9-1.1) Activated Partial Thromboplast Time 24.4 SECONDS (21.0-31.0) Partial Thromboplastin Ratio 0.9 Anion Gap 5.0 mmol/L (3-11) Est Creatinine Clear Calc Drug Dose 48.0 ml/min Estimated GFR () 65.4 Estimated GFR (Non- 56.5 BUN/Creatinine Ratio 13.8 (10-20) Calcium Level 9.0 mg/dl (8.5-10.1) Lyme Disease IgG Antibody NEG (NEG) Lyme Disease IgM Antibody NEG (NEG) Labs reviewed by ED physician. Medications Administered Medications (Trade) Dose Ordered Sig/Alex Route Start Time Stop Time Status Last Admin Dose Admin Ceftriaxone Sodium (Rocephin Inj) 1 gm NOW STAT IV 05/31/17 18:28 05/31/17 18:30 DC 05/31/17 18:52 1 GM Enoxaparin Sodium (Lovenox 1 Mg/Kg) 1 ea NOW STAT SQ 05/31/17 20:05 05/31/17 20:07 DC 05/31/17 20:05 1 EA Warfarin Sodium (Coumadin Tab) 10 mg NOW STAT PO 05/31/17 20:05 05/31/17 20:07 DC 05/31/17 20:54 10 MG Enoxaparin Sodium (Lovenox Inj) 70 mg NOW ONCE SQ 05/31/17 20:15 05/31/17 20:16 DC 05/31/17 20:53 70 MG ED Course 1816: Past medical records reviewed. The patient was evaluated in room C10. A complete history and physical examination was performed. 1827: Rocephin 1gm IV 2011: Upon reexamination the patient is doing well. I discussed results and treatment plan with the patient. He verbalizes agreement and understanding. The patient is ready for discharge. 2015: Lovenox 70mg SQ Medical Decision Differential diagnosis: Etiologies such as cellulitis, abscess, MRSA infection, DVT, necrotizing fasciitis, dermatitis, drug eruption, as well as others were entertained. This is a 66-year-old male who presents emergency department complaining of left leg pain and swelling. The patient has no history of blood clots. He denies any chest pain or shortness of breath and I will note is not tachycardic here in the emergency department. Based on this finding the patient was sent for an ultrasound of his left lower extremity. This was concerning for a DVT. I do believe that the patient is stable enough to be discharged home. PT-INR and PTT were obtained in the emergency department along with a hypercoagulable workup prior to the patient receiving anticoagulation. He was started on Lovenox as well as Coumadin in the emergency department. I stressed the need for follow-up with the patient's primary care physician. I gave my customary talk on the dangers of anticoagulation. Patient was in agreement with the treatment plan. Medication Reconcilliation Current Medication List: was personally reviewed by me Blood Pressure Screening Patient's blood pressure: Normal blood pressure Impression Primary Impression: Deep vein thrombosis Scribe Attestation The scribe's documentation has been prepared under my direction and personally reviewed by me in its entirety. I confirm that the note above accurately reflects all work, treatment, procedures, and medical decision making performed by me. Departure Information Dispostion Home / Self-Care Prescriptions Warfarin Sodium (COUMADIN) 5 Mg Tab 5 MG PO DAILY for 10 Days, #10 TAB Prov: Dread France MD 05/31/17 Enoxaparin Sodium (LOVENOX) 80 Mg/0.8 Ml Inj 70 MG SQ Q12 for 5 Days, #10 SYR Prov: Dread France MD 05/31/17 Referrals Gonzales Cox M.D. (PCP) Forms HOME CARE DOCUMENTATION FORM, IMPORTANT VISIT INFORMATION, School Instructions, Work Instructions Patient Instructions DVT, DVT Dc, My [facility] Additional Instructions Need follow up with DR Cox's office this week You have been examined and treated today on an emergency basis only. This is not a substitute for, or an effort to provide, complete comprehensive medical care. It is impossible to recognize and treat all injuries or illnesses in a single emergency department visit. It is therefore important that you follow up closely with Dr Cox. Call as soon as possible for an appointment. Thank you for your time and consideration. I look forward to speaking with you again soon. Please don't hesitate to call us if you have any questions. Problem Qualifiers Primary Impression: Deep vein thrombosis DVT location: lower extremity Affected thrombotic vein of extremity: unspecified vein of extremity Chronicity: acute Laterality: left Qualified Codes: I82.402 - Acute embolism and thrombosis of unspecified deep veins of left lower extremity
[2017-05-31 19:11] LABS: BASO % 0.5 %; BASO ABS # 0.04 K/uL (0-0.2); EOS % 3.3 %; EOS ABS # 0.24 K/uL (0-0.5); HEMATOCRIT 42.1 % (42-52); HEMOGLOBIN 14.6 g/dL (14.0-18.0); IG# 0.01 K/uL (0.00-0.02); LYMPH % 35.3 %; LYMPH ABS # 2.59 K/uL (1.2-3.4); MEAN CELL VOLUME 95.7 fL (80-100); MEAN CORPUSCULAR HEMOGLOBIN 33.2 pg (25-34); MEAN CORPUSCULAR HGB CONC 34.7 g/dl (32-36); MEAN PLATELET VOLUME 9.3 fL (7.4-10.4); MONO % 7.1 %; MONO ABS # 0.52 K/uL (0.11-0.59); NEUT % 53.7 %; NEUT ABS # 3.93 K/uL (1.4-6.5); PLATELET COUNT 228 K/uL (130-400); RED CELL DISTRIBUTION WIDTH CV 12.6 % (11.5-14.5); RED CELL DISTRIBUTION WIDTH SD 43.6 fL (36.4-46.3); WHITE BLOOD COUNT 7.33 K/uL (4.8-10.8)
[2017-05-31 19:28] LABS: CREATININE 1.3 mg/dl (0.60-1.40); POTASSIUM 4.1 mmol/L (3.5-5.1)
--- NOTE | 2017-05-31 19:43 | DIAGNOSTIC IMAGING REPORT ---
L VENOUS DOPP LOWER EXT UNILAT CLINICAL HISTORY: Pt c/o LLE swelling pain. Edema. TECHNIQUE: Venous Doppler COMPARISON STUDY: None FINDINGS: Findings consistent with thrombus within the mid to distal peroneal vein. This is inferior to the knee. All venous structures the knee to the inguinal regions are widely patent. IMPRESSION: Focal deep venous thrombosis mid to distal left peroneal vein of the left calf. All remaining venous structures are unremarkable. The above report was generated using voice recognition software. It may contain grammatical, syntax or spelling errors. Electronically signed by: Jorge Alberto Conteh M.D. 05/31/2017 7:42 PM Dictated Date/Time: 05/31/2017 7:41 PM
[2017-05-31] MEDS ORDERED: ENOXAPARIN 1 MG/KG SQ STA (20:05)
[2017-05-31] MEDS ORDERED: ENOX1INJ11 SQ (20:08)
[2017-05-31] MEDS ORDERED: WARF5TAB90 PO (20:08)
[2017-05-31 20:12] LABS: PTT PATIENT 24.4 SECONDS (21.0-31.0)
[2017-05-31] MEDS: WARFARIN SOD 5 MG TAB PO STA ×2 (20:12→20:54)
[2017-05-31] MEDS ORDERED: ENOXAPARIN 80 MG/0.8 ML SYR SQ ONE (20:15)
[2017-05-31 20:51] VITALS: BP 127/80; PULSE 69; O2SAT 99
[2017-05-31] MEDS ORDERED: SILD1TAB39 PO (21:05)
[2017-05-31] MEDS ORDERED: ZNTT/150 PO (21:05)
== END 2017-05-31 20:51 | disposition home or self-care (01) ==
LOC: C.EDB 15:55 → C.EDC 20:51
DX: I82.492 Acute embolism and thrombosis of other specified deep vein of left lower extremity (principal); E78.5 Hyperlipidemia, unspecified; N52.9 Male erectile dysfunction, unspecified; Z79.82 Long term (current) use of aspirin; Z83.3 Family history of diabetes mellitus; Z82.49 Family history of ischemic heart disease and other diseases of the circulatory system

== ENCOUNTER → 2017-06-03 | Outpatient (CLI) | payer OTHER ==
[~2017-06-03] MED LIST changes: -ACET-749 PO; -CIPR1TAB10 PO; -CLC100 PO; -DTR5 PO; +ENOX1INJ11 SQ; +RANI150T85 PO; +SILD1TAB39 PO; +WARF5TAB90 PO
[2017-06-03 15:13] LABS: INR 1.6 (0.9-1.1)
== END | disposition home or self-care (01) ==
LOC: C.LAB1850 12:54
PROVIDERS: ATTEND Nurse Practitioner Adult Health
DX: I82.402 Acute embolism and thrombosis of unspecified deep veins of left lower extremity (principal)

== ENCOUNTER → 2017-06-06 | Outpatient (CLI) | payer OTHER ==
[2017-06-06 10:45] LABS: INR 2.1 (0.9-1.1)
== END | disposition home or self-care (01) ==
LOC: C.LAB1850 09:06
PROVIDERS: ATTEND Nurse Practitioner Adult Health
DX: I82.402 Acute embolism and thrombosis of unspecified deep veins of left lower extremity (principal)

== ENCOUNTER → 2017-06-10 | Outpatient (CLI) | payer OTHER ==
[~2017-06-10] MED LIST changes: -ENOX1INJ11 SQ
[2017-06-10 10:30] LABS: INR 1.8 (0.9-1.1)
== END ==
LOC: C.LAB1850 09:03
PROVIDERS: ATTEND Internal Medicine
DX: I82.402 Acute embolism and thrombosis of unspecified deep veins of left lower extremity (principal)

== ENCOUNTER → 2017-06-17 | Outpatient (CLI) | payer OTHER ==
[~2017-06-17] MED LIST changes: -WARF5TAB90 PO
== END | disposition home or self-care (01) ==
LOC: C.LAB1850 08:49
PROVIDERS: ATTEND Internal Medicine
DX: I82.402 Acute embolism and thrombosis of unspecified deep veins of left lower extremity (principal); C61 Malignant neoplasm of prostate

== ENCOUNTER → 2017-07-09 | Outpatient (CLI) | payer OTHER | END | disposition home or self-care (01) | LOC: C.LAB1850 09:55 | PROVIDERS: ATTEND Urology | DX: C61 Malignant neoplasm of prostate (principal) ==

== ENCOUNTER → 2017-08-12 | Outpatient (CLI) | payer OTHER ==
[2017-08-12 09:52] LABS: HEMOGLOBIN A1C 5.4 % (4.5-5.6)
[2017-08-12 09:56] LABS: ALT/SGPT 26 U/L (12-78); AST/SGOT 24 U/L (15-37); BLOOD UREA NITROGEN 20 mg/dl (7-18); CALCIUM 8.8 mg/dl (8.5-10.1); CARBON DIOXIDE 30 mmol/L (21-32); GLUCOSE 98 mg/dl (70-99); SODIUM 140 mmol/L (136-145)
[2017-08-12 09:58] LABS: CHOLESTEROL 181 mg/dl (0-200); LDL CHOLESTEROL CALCULATED 108 mg/dl
== END | disposition home or self-care (01) ==
LOC: C.LAB1850 06:59
PROVIDERS: ATTEND Internal Medicine
DX: E78.5 Hyperlipidemia, unspecified (principal); R73.9 Hyperglycemia, unspecified

== ENCOUNTER → 2017-08-22 | Outpatient (CLI) | payer OTHER | END | disposition home or self-care (01) | LOC: C.LAB1850 07:10 | PROVIDERS: ATTEND Internal Medicine Hematology & Oncology | DX: I82.402 Acute embolism and thrombosis of unspecified deep veins of left lower extremity (principal) ==